=== PATIENT | female | born 1965 | race Caucasian/White ===

== ENCOUNTER 2020-01-12 09:00 | Outpatient (REF) | payer OTHER, SELFPAY | END 2020-01-12 09:01 | disposition home or self-care (01) | LOC: HO.LAB 09:00 | PROVIDERS: Visit Provider Internal Medicine | DX: Z20.828 Contact with and (suspected) exposure to other viral communicable diseases (principal) | CPT/HCPCS: C9803; U0003 ==

== ENCOUNTER 2020-01-16 09:00 | Outpatient (REF) | payer OTHER, SELFPAY ==
--- NOTE | 2020-01-17 09:04 | MHC.AU.P13 ---
Adult Audiological Evaluation Date of Visit: 01/16/20 Roll Machine Operator Used: Declined by Patient Reason for Appointment: Audiologic evaluation due to increasing hearing difficulties. Family notes Katie is asking for speech to be reported more often. Does patient feel they have a hearing loss?: Yes If Yes, Which Ear?: Both Ears When Was Hearing Difficulty First Noticed?: Increasing problems noticed approximately 3 years ago. 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 Medical History: Medical History: Gastritis Medication List: None Otoscopy: Right Ear: Unremarkable Left Ear: Unremarkable Tympanometry: Right Ear: Reduced Middle Ear Compliance (Type As) Left Ear: Reduced Middle Ear Compliance (Type As) Otoacoustic Emissions Frequency Range Used: 1.6-8 kHz Right Ear Results: Absent Emissions Analysis: Reduced/Absent emissions suggest cochlear dysfunction Left Ear Results: Absent Emissions Analysis: Reduced/Absent emissions suggest cochlear dysfunction Hearing Evaluation: Transducer(s) Used: Insert Earphones Bone Conduction Method: Conventional Audiometry Stimuli Used: Pure Tones Right Ear: Description of Hearing: Moderate to severe mixed hearing loss Left Ear: Description of Hearing: Mild to severe sensorineural hearing loss Speech Recognition Threshold (SRT): Method Used: Monitored Live Voice Stimuli Used: Spondee Words Right Ear: 40 dB HL Left Ear: 25 dB HL Word Discrimination: Method: Monitored Live Voice Word Lists Used: Lista Bisil?bica (Indonesian) Right Ear: 100% at 80 dB HL Left Ear: 100% at 65 dB HL Comparison: Compared to the most recent evaluation: N/A Recommendations: Recommendations: Trial with amplification is recommended. Medical clearance from a physician is required before fitting. Referral to Ear, Nose, and Throat is recommended. Recommendations (Other): 1) Medical consultation with an Hris Coordinator due to the asymmetric hearing loss is advised. 2) Following the medical consultation and receipt of medical clearance for hearing aids is obtained, Katie will schedule a Hearing Aid Evaluation appointment at this office. Diagnosis: Primary Diagnosis: H90.3 Bilateral Sensorineural Hearing Loss Services Performed: Services Performed: Comprehensive Audiological Evaluation (CPT 06125) Diagnostic Otoacoustic Emissions (CPT 43988, 26+TC) Tympanometry (CPT 75532) Signature: Provider: Lali Hays, ANGELIQUE-A
== END 2020-01-16 09:01 | disposition home or self-care (01) ==
LOC: HO.SH 09:00
PROVIDERS: PCP Hospitalist; Referring Provider Hospitalist; Visit Provider Hospitalist
DX: H90.3 Sensorineural hearing loss, bilateral (principal)
CPT/HCPCS: 92557; 92567; 92588

== ENCOUNTER 2020-02-19 13:42 | Outpatient (REF) | payer OTHER, SELFPAY ==
--- NOTE | 2020-02-19 15:18 | MHC.AU.HAS ---
Hearing Aid Evaluation Date of Visit: 02/19/20 Commissary Representative Used: Vietnamese interpretation by family member Historical Information: Description of Hearing: Left ear: normal hearing 250-500 Hz, sloping to a mild to moderate SNHL from 4985-2760 Hz. Right ear: Moderate mixed hearing loss 250-1000 Hz, sloping to a moderate to severe sensorineural hearing loss from 8253-5438 Hz. Current personal amplification information, if applicable:: None Summary: Ms. Shin was seen for an audiological evaluation on 01/16/2020, at which time she was diagnosed with a bilateral hearing loss. She was evaluated by ENT Foster Dutton MD and he provided medical clearance for hearing aid use. Ms. Shin has noted difficulties hearing her family and often asks for repetition. Binaural amplification is recommended in order to facilitate improved communication. Hearing Aid Prescription: Based on the individual?s shared listening needs, communication environments, dexterity, desire for connectivity, and personal preferences, the following prescription for amplification has been made: Right ear: Automotive Parts Person: [employer] Model: Audeo P70-13T Battery Size: 13 Color: P4 [place]pont Senior Assistant Manager: Size 1 M Left ear: Left ear prescription to be same as Right Hearing Aid above: Automotive Parts Person: Phonak Model: Audeo P70-13T Battery Size: 13 Color: P4- Pierpont Senior Assistant Manager: Size 1 M Plan of Care: Patient wishes to purchase hearing aids as prescribed Action Taken/Action Needed: Hearing Fitting to be scheduled when materials arrive Primary Diagnosis: H90.3 Bilateral Sensorineural Hearing Loss Signature: Provider: Lali Cage, ANGELIQUE-A
== END 2020-02-19 13:43 | disposition home or self-care (01) ==
LOC: HO.HAP 13:42
PROVIDERS: Visit Provider Hospitalist
DX: Z46.1 Encounter for fitting and adjustment of hearing aid (principal); H90.3 Sensorineural hearing loss, bilateral
CPT/HCPCS: 92591

== ENCOUNTER 2020-03-01 10:06 | Outpatient (REF) | payer OTHER, SELFPAY | END 2020-03-01 10:07 | disposition home or self-care (01) | LOC: HO.LAB 10:06 | PROVIDERS: PCP Hospitalist; Visit Provider Internal Medicine | DX: Z20.822 Contact with and (suspected) exposure to COVID-19 (principal) | CPT/HCPCS: 36415; C9803; U0003 ==

== ENCOUNTER 2020-03-20 13:53 | Outpatient (REF) | payer OTHER, SELFPAY | END 2020-03-20 13:54 | disposition home or self-care (01) | LOC: HO.HAP 13:53 | PROVIDERS: Visit Provider Hospitalist | DX: Z46.1 Encounter for fitting and adjustment of hearing aid (principal); H90.3 Sensorineural hearing loss, bilateral | CPT/HCPCS: V5011; V5020; V5160; V5261; V5266 ==

== ENCOUNTER 2020-03-20 15:14 | Outpatient (REF) | payer OTHER, SELFPAY | END 2020-03-20 15:15 | disposition home or self-care (01) | LOC: HO.LAB 15:14 | PROVIDERS: Visit Provider Internal Medicine | DX: Z20.822 Contact with and (suspected) exposure to COVID-19 (principal) | CPT/HCPCS: 36415; C9803; U0003; U0005 ==

== ENCOUNTER 2021-07-21 11:19 | Outpatient (REF) | payer OTHER, SELFPAY | END 2021-07-21 11:20 | disposition home or self-care (01) | LOC: HO.HAP 11:19 | PROVIDERS: Visit Provider Hospitalist | DX: Z46.1 Encounter for fitting and adjustment of hearing aid (principal); H90.3 Sensorineural hearing loss, bilateral | CPT/HCPCS: 92593; V5266 ==

== ENCOUNTER 2021-10-05 14:04 | Outpatient (REF) | payer OTHER, SELFPAY | END 2021-10-05 14:05 | disposition home or self-care (01) | LOC: HO.HAP 14:04 | PROVIDERS: Visit Provider Hospitalist | DX: Z46.1 Encounter for fitting and adjustment of hearing aid (principal); H90.3 Sensorineural hearing loss, bilateral | CPT/HCPCS: V5266 ==

== ENCOUNTER 2021-11-27 09:52 | Outpatient (REF) | payer OTHER, SELFPAY | END 2021-11-27 09:53 | disposition home or self-care (01) | LOC: HO.HAP 09:52 | PROVIDERS: Visit Provider Hospitalist | DX: Z46.1 Encounter for fitting and adjustment of hearing aid (principal); H90.3 Sensorineural hearing loss, bilateral | CPT/HCPCS: V5266 ==

== ENCOUNTER 2021-12-29 10:02 | Outpatient (REF) | payer MEDICAID, SELFPAY | END 2021-12-29 10:03 | disposition home or self-care (01) | LOC: HO.HAP 10:02 | PROVIDERS: Visit Provider Hospitalist | DX: Z46.1 Encounter for fitting and adjustment of hearing aid (principal); H90.3 Sensorineural hearing loss, bilateral | CPT/HCPCS: V5266 ==

== ENCOUNTER 2022-04-30 14:10 | Outpatient (REF) | payer MEDICAID, SELFPAY | END 2022-04-30 14:11 | disposition home or self-care (01) | LOC: HO.HAP 14:10 | PROVIDERS: Visit Provider Hospitalist | DX: Z46.1 Encounter for fitting and adjustment of hearing aid (principal); H90.3 Sensorineural hearing loss, bilateral | CPT/HCPCS: V5266 ==

== ENCOUNTER 2022-07-30 12:29 | Outpatient (REF) | payer OTHER, SELFPAY | END 2022-07-30 12:30 | disposition home or self-care (01) | LOC: HO.HAP 12:29 | PROVIDERS: Visit Provider Hospitalist | DX: Z46.1 Encounter for fitting and adjustment of hearing aid (principal); H90.3 Sensorineural hearing loss, bilateral | CPT/HCPCS: V5266 ==

== ENCOUNTER 2022-11-02 13:52 | Outpatient (REF) | payer OTHER, SELFPAY | END 2022-11-02 13:53 | disposition home or self-care (01) | LOC: HO.HAP 13:52 | PROVIDERS: Visit Provider Hospitalist | DX: Z46.1 Encounter for fitting and adjustment of hearing aid (principal); H90.3 Sensorineural hearing loss, bilateral | CPT/HCPCS: V5266 ==

== ENCOUNTER 2023-02-11 13:56 | Outpatient (REF) | payer OTHER, SELFPAY | END 2023-02-11 13:57 | disposition home or self-care (01) | LOC: HO.HAP 13:56 | PROVIDERS: Visit Provider Hospitalist | DX: Z46.1 Encounter for fitting and adjustment of hearing aid (principal); H90.3 Sensorineural hearing loss, bilateral | CPT/HCPCS: V5266 ==

== ENCOUNTER 2023-04-19 15:04 | Outpatient (REF) | payer OTHER, SELFPAY | END 2023-04-19 15:05 | disposition home or self-care (01) | LOC: HO.HAP 15:04 | PROVIDERS: Visit Provider Hospitalist | DX: Z46.1 Encounter for fitting and adjustment of hearing aid (principal); H90.3 Sensorineural hearing loss, bilateral | CPT/HCPCS: V5266 ==

== ENCOUNTER 2023-07-01 09:41 | Outpatient (REF) | payer OTHER, SELFPAY | END 2023-07-01 09:42 | disposition home or self-care (01) | LOC: HO.HAP 09:41 | PROVIDERS: Visit Provider Hospitalist | DX: Z46.1 Encounter for fitting and adjustment of hearing aid (principal); H90.3 Sensorineural hearing loss, bilateral | CPT/HCPCS: V5266 ==

== ENCOUNTER 2023-08-30 09:18 | Outpatient (REF) | payer OTHER, SELFPAY | END 2023-08-30 09:19 | disposition home or self-care (01) | LOC: HO.HAP 09:18 | PROVIDERS: Visit Provider Hospitalist | DX: Z46.1 Encounter for fitting and adjustment of hearing aid (principal); H90.3 Sensorineural hearing loss, bilateral | CPT/HCPCS: V5266 ==

== ENCOUNTER 2023-09-28 13:54 | Outpatient (REF) | payer OTHER, SELFPAY ==
--- NOTE | 2023-09-29 12:53 | MHC.AU.HA3 ---
Hearing Instrument Follow-Up- Binaural Date of Visit: 09/28/23 Right Ear: Esa, Model, Color, Serial Number: Sigrid Bankso P70-T SN: [id number] Color: [place] Sales Representative Jewelry Repair Warranty: 05/20/2023 Sales Representative Jewelry Loss and Damage Warranty: 05/20/2023 [facility] Service Plan: 03/20/2021 Battery Size: 13 Agriculture Professor/Slim Tube: 0M Earmold/Dome/CShell/SlimTip:Small power dome (no retention tail) Type of Wax Guard: Cerushield Dispensed By: [facility] Date of Fittin03/20/2020 Left Ear: Esa, Model, Color, Serial Number: Sigrid Pikeeo P70-T SN: [id number] Color: [place] Sales Representative Jewelry Repair Warranty: 05/20/2023 Sales Representative Jewelry Loss and Damage Warranty: 05/20/2023 [facility] Service Plan: 03/20/2021 Battery Size: 13 Agriculture Professor/Slim Tube: 1M Earmold/Dome/CShell/SlimTip: Small vented dome (no retention tail) Type of Wax Guard: Cerushield Dispensed By: [facility] Date of Fittin03/20/2020 Follow-Up Summary: Right hearing aid not working. Still even after cleaning, information specialist replacement, etc. Cleaned left hearing aid, replaced dome and wax guard. Vacuumed microphones. Ran through dehumidifier. Listening check demonstrated left hearing aid amplifying clearly. Programmed loaner for right ear. Sent right hearing aid to [employer]. Will need appointment for pickling tank operator to re-pair with left hearing aid when it returns. Recommendations: Patient will be contacted when materials have arrived. Diagnosis Code(s): Primary Diagnosis: H90.A31 Mixed HL, Unilateral Right Ear, W/Restricted Contralateral Secondary Diagnosis: H90.A22 SNHL, Unilateral, Left Ear, W/Restricted Contralateral Hearing Signature: Provider: Siobhan Randle, [facility]
== END 2023-09-28 13:55 | disposition home or self-care (01) ==
LOC: HO.HAP 13:54
PROVIDERS: PCP Internal Medicine; Visit Provider Internal Medicine
DX: Z46.1 Encounter for fitting and adjustment of hearing aid (principal); H90.A31 Mixed conductive and sensorineural hearing loss, unilateral, right ear with restricted hearing on the contralateral side; H90.A22 Sensorineural hearing loss, unilateral, left ear, with restricted hearing on the contralateral side
CPT/HCPCS: 92593; 99499

== ENCOUNTER 2023-10-20 13:28 | Outpatient (REF) | payer OTHER, SELFPAY | END 2023-10-20 13:29 | disposition home or self-care (01) | LOC: HO.HAP 13:28 | PROVIDERS: Visit Provider Internal Medicine | DX: Z13.89 Encounter for screening for other disorder (principal) | CPT/HCPCS: V5014 ==

== ENCOUNTER 2023-11-09 09:32 | Outpatient (REF) | payer OTHER, SELFPAY | END 2023-11-09 09:33 | disposition home or self-care (01) | LOC: HO.HAP 09:32 | PROVIDERS: Visit Provider Internal Medicine | DX: Z46.1 Encounter for fitting and adjustment of hearing aid (principal); H90.A31 Mixed conductive and sensorineural hearing loss, unilateral, right ear with restricted hearing on the contralateral side; H90.A22 Sensorineural hearing loss, unilateral, left ear, with restricted hearing on the contralateral side | CPT/HCPCS: V5266 ==

== ENCOUNTER 2024-01-25 09:05 | Outpatient (REF) | payer OTHER, SELFPAY | END 2024-01-25 09:06 | disposition home or self-care (01) | LOC: HO.HAP 09:05 | PROVIDERS: Visit Provider Internal Medicine | DX: Z46.1 Encounter for fitting and adjustment of hearing aid (principal); H90.A31 Mixed conductive and sensorineural hearing loss, unilateral, right ear with restricted hearing on the contralateral side; H90.A22 Sensorineural hearing loss, unilateral, left ear, with restricted hearing on the contralateral side | CPT/HCPCS: V5266 ==

== ENCOUNTER 2024-03-28 15:23 | Outpatient (REF) | payer OTHER, SELFPAY ==
--- OUTSIDE RECORDS SUMMARY | 2024-03-28 16:17 | XMS_ITS | Clinical Summary ---
[facility] Address [address] [place] [phone] Care Team Providers Care Varying Exceptionalities Teacher Name Role Phone Jeremy Montiel MD Primary Care Provider Surgical History Surgery Date Site/Laterality Comments OTHER SURGICAL HISTORY PROCEDURE: ---- OTHER ----; COMMENT: Family History Medical History Relation Name Comments Arthritis Brother Other: gastritis Mother ETOH abuse, Hypertension Sister Relation Name Status Comments Brother Mother Sister Social History Tobacco Use Types Packs/Day Years Used Date Smoking Tobacco: Never Smokeless Tobacco: Never Alcohol Use Standard Drinks/Week Comments No 0 (1 standard drink = 0.6 oz pur e alcohol) Comments Unknown Sex and Gender Information Value Date Recorded Sex Assigned at Not on file Legal Sex Female 1:46 AM EST Gender Identity Not on file Sexual Orientation Not on file Obstetrics History Plan of Treatment Health Maintenance Due Date Last Done Comments Hepatitis B Vaccines (1 of 3 - 19+ 3-dose series) 1986 Cervical Cancer Screening: P ap Smear 1988 Zoster Vaccines (1 of 2) 2017 Breast Cancer Screening 04/28/2018 04/28/2016 COVID-19 Vaccine ( - 2023-2 5 season) 2023 Influenza Vaccine (#1) 2023 12/06/2019 Colorectal Cancer Screening: Colonoscopy 11/22/2023 Depression Screening 11/22/2023 HIV Screening 11/22/2023 Hepatitis C Screening 11/22/2023 Social Influencers of Health Screening 11/22/2023 DTaP,Tdap,and Td Vaccines (2 - Td or Tdap) 01/20/2026 01/21/2016 HIB Vaccines Aged Out No longer eligi ble based on patient's age to complete this topic HPV Vaccines Aged Out No longer eligi ble based on patient's age to complete this topic Hepatitis A Vaccines Aged Out No long er eligible based on patient's age to complete this topic IPV Vaccines Aged Out No longer eligi ble based on patient's age to complete this topic MMR Vaccines Aged Out No longer eligi ble based on patient's age to complete this topic Meningococcal ACWY Vaccine Aged Out N o longer eligible based on patient's age to complete this topic Pneumococcal Vaccine: Pediat rics (0 to 5 Years) and At-Risk Patients (6 to 64 Years) Aged Out No longer eligi ble based on patient's age to complete this topic RSV Immunization Patients Un pilar 20 months Aged Out No longer eligible b ased on patient's age to complete this topic Varicella Vaccines Aged Out No longer eligible based on patient's age to complete this topic Procedures Procedure Name Priority Date/Time Associated Diagnosis Comments SCR MAMMO BI INCL CAD Routine 04/28/2016 10:52 AM EDT Encounter for screening mammogram for malignant neoplasm of breast from Last 3 Months or Most Recently Relevant to Health Maintenance Results * SCR MAMMO BI INCL CAD (04/28/2016 10:52 AM EDT) Anatomical Region Laterality Modality Radiographic Ana ging 01/21/2016 3:29 PM EST Narrative 04/28/2016 1:47 PM EDT This is a summary report. The complete report is available in the patient's medical record. If you cannot access the medical record, please contact the sending organization for a detailed fax or copy. Full field digital screening mammography, reviewed with CAD and compared to previous. The breast tissue is heterogeneously dense, limiting sensitivity. No suspicious mass, architectural distortion or suspicious calcifications are identified. IMPRESSION: : Dense breast tissue, limiting the sensitivity of mammography. No mammographic evidence of malignancy. BIRADS 1-Negative; N. 5 year breast cancer risk assessment 0.5% Lifetime breast cancer risk assessment 5.3% Breast cancer risk category Breast cancer risk not assessed Procedure Note Dee Perkins MD - 03/21/2023 This is a summary report. The complete report is available in thepatient's medical record. If you cannot access the medical record, pleasecontact the sending organization for a detailed fax or copy. Full field digital screening mammography, reviewed with CAD and comparedto previous. The breast tissue is heterogeneously dense, limitingsensitivity. No suspicious mass, architectural distortion or suspiciouscalcifications are identified. IMPRESSION: : Dense breast tissue, limiting the sensitivity of mammography. Nomammographic evidence of malignancy. BIRADS 1-Negative; N. 5 year breast cancer risk assessment 0.5% Lifetime breast cancer risk assessment 5.3% Breast cancer risk category Breast cancer risk not assessed Jeremy Montiel MD IMG XR PROCEDURES Final Result from Last 3 Months or Most Recently Relevant to Health Maintenance Care Teams Varying Exceptionalities Teacher Relationship Specialty Start Date End Date Jeremy Montiel MD PCP - General Internal Medicine 04/25/15
== END 2024-03-28 15:24 | disposition home or self-care (01) ==
LOC: HO.HAP 15:23
PROVIDERS: Visit Provider Internal Medicine
DX: Z46.1 Encounter for fitting and adjustment of hearing aid (principal)
CPT/HCPCS: V5266

== ENCOUNTER 2024-04-23 13:12 | Outpatient (REF) | payer OTHER, SELFPAY ==
--- OUTSIDE RECORDS SUMMARY | 2024-04-23 14:53 | XMS_ITS | Clinical Summary ---
Author Organization [facility] ity Address [address] [place] [phone] Care Team Providers Care Consulting Services Project Manager Name Role Phone Jeremy Montiel MD Primary [...] Cervical Cancer Screening: P ap Smear 1988 Pneumococcal Vaccine: 50+ Ye ars (1 of 1 - PCV) 2017 Zoster Vaccines (1 of 2) 2017 Breast [...] patient's age to complete this topic Meningococcal B Vacine Aged Out No lo nger eligible based on patient's age to complete [...] Recently Relevant to Health Maintenance Care Teams Consulting Services Project Manager Relationship Specialty Start Date End Date Jeremy Montiel MD PCP - General Internal Medicine 04/25/15
--- NOTE | 2024-04-23 15:57 | MHC.AU.HA3 ---
Hearing Instrument Follow-Up- Binaural Date of Visit: 04/23/24 Right Ear: Make, Model, Color, Serial Number: Sigrid Audeo P70-T SN: [id number] Color: [place] Rocket Engine Component Mechanic Repair Warranty: 04/12/2024 Rocket Engine Component Mechanic Loss and Damage Warranty: 05/20/2023 [facility] Service Plan: 03/20/2021 Battery Size: 13 Shuffle Board Operator/Slim Tube: 0M Earmold/Dome/CShell/SlimTip:Small power dome (no retention tail) Type of Wax Guard: Cerushield Dispensed By: [facility] Date of Fittin03/20/2020 Left Ear: Make, Model, Color, Serial Number: Araceliak Audeo P70-T SN: [id number] Color: [place] Rocket Engine Component Mechanic Repair Warranty: 05/20/2023 Rocket Engine Component Mechanic Loss and Damage Warranty: 05/20/2023 [facility] Service Plan: 03/20/2021 Battery Size: 13 Shuffle Board Operator/Slim Tube: 0M Earmold/Dome/CShell/SlimTip: Small vented dome (no retention tail) Type of Wax Guard: Cerushield Dispensed By: [facility] Date of Fittin03/20/2020 Follow-Up Summary: Left aid dropped off with broken outreach counselor wire. Replaced. Listening check positive. Out of warranty. Recommendations: Recommendations: Hearing instrument follow-up or maintenance as needed. Diagnosis Code(s): Primary Diagnosis: H90.3 Signature: Provider: Siobhan Souza, [facility]
== END 2024-04-23 13:13 | disposition home or self-care (01) ==
LOC: HO.HAP 13:12
PROVIDERS: Visit Provider Internal Medicine
DX: Z13.89 Encounter for screening for other disorder (principal)

== ENCOUNTER 2024-04-24 15:34 | Outpatient (REF) | payer OTHER, SELFPAY ==
--- OUTSIDE RECORDS SUMMARY | 2024-04-24 18:52 | XMS_ITS | Clinical Summary ---
Author Organization [facility] Address [address] [place] [phone] Care Team Providers Care Processor Grain Name Role Phone Jeremy Montiel MD Primary [...] Recently Relevant to Health Maintenance Care Teams Processor Grain Relationship Specialty Start Date End Date Jeremy Montiel MD PCP - General Internal Medicine 04/25/15
== END 2024-04-24 15:35 | disposition home or self-care (01) ==
LOC: HO.HAP 15:34
PROVIDERS: Visit Provider Internal Medicine
DX: Z46.1 Encounter for fitting and adjustment of hearing aid (principal); H90.3 Sensorineural hearing loss, bilateral
CPT/HCPCS: V5299

== ENCOUNTER 2024-05-21 13:02 | Outpatient (REF) | payer OTHER, SELFPAY ==
--- OUTSIDE RECORDS SUMMARY | 2024-05-21 15:29 | XMS_ITS | Clinical Summary ---
Author Organization [facility] Address [address] [place] [phone] Care Team Providers Care Telephone Surveyor Name Role Phone Jeremy Montiel MD Primary [...] age to complete this topic Meningococcal B Vaccine Aged Out No l onger eligible based on patient's age to complete [...] Recently Relevant to Health Maintenance Care Teams Telephone Surveyor Relationship Specialty Start Date End Date Jeremy Montiel MD PCP - General Internal Medicine 04/25/15
--- NOTE | 2024-05-22 15:02 | MHC.AU.HA3 ---
Hearing Instrument Follow-Up- Binaural Date of Visit: 05/22/24 Right Ear: Esa, Model, Color, Serial Number: Sigrid Bankso P70-T SN: [id number] Color: Gunlock Manager Core Repair Warranty: 04/12/2024 Manager Core Loss and Damage Warranty: 05/20/2023 [facility] Service Plan: 03/20/2021 Battery Size: 13 [place] Firefighter/Slim Tube: 0M Earmold/Dome/CShell/SlimTip:Small power dome (no retention tail) Type of Wax Guard: Cerushield Dispensed By: [facility] Date of Fittin03/20/2020 Left Ear: Esa, Model, Color, Serial Number: Sigrid Pikeeo P70-T SN: [id number] Color: Gunlock Manager Core Repair Warranty: 05/20/2023 Manager Core Loss and Damage Warranty: 05/20/2023 [facility] Service Plan: 03/20/2021 Battery Size: 13 [place] Firefighter/Slim Tube: 0M Earmold/Dome/CShell/SlimTip: Small vented dome (no retention tail) Type of Wax Guard: Cerushield Dispensed By: [facility] Date of Fittin03/20/2020 Follow-Up Summary: Right KHOURY dropped off reporting had a noise then it shut down, battery was changed but it's still . Upon inspection, KHOURY was working. Cleaned. Replaced dome and wax guard. Some build up noted in microphones - vacuumed. Ran through dehumidifier. Listening check demonstrated KHOURY amplifying clearly. Tried to called patient for more information, Taiwanese speaking - to front office to call/pepper picker. Recommendations: Hearing instrument follow-up or maintenance as needed. Please contact our clinic with any questions or concerns. Diagnosis Code(s): Primary Diagnosis: H90.A31 Mixed HL, Unilateral Right Ear, W/Restricted Contralateral Secondary Diagnosis: H90.A22 SNHL, Unilateral, Left Ear, W/Restricted Contralateral Hearing Signature: Provider: Siobhan Randle, [facility]
== END 2024-05-21 13:03 | disposition home or self-care (01) ==
LOC: HO.SH 13:02
PROVIDERS: Visit Provider Internal Medicine
DX: Z13.89 Encounter for screening for other disorder (principal)

== ENCOUNTER 2024-05-22 15:54 | Outpatient (REF) | payer OTHER, SELFPAY ==
--- OUTSIDE RECORDS SUMMARY | 2024-05-22 18:48 | XMS_ITS | Clinical Summary ---
Author Organization [facility] Address [address] [place] [phone] Care Team Providers Care Home Attendant Name Role Phone Jeremy Montiel MD Primary [...] Recently Relevant to Health Maintenance Care Teams Home Attendant Relationship Specialty Start Date End Date Jeremy Montiel MD PCP - General Internal Medicine 04/25/15
== END 2024-05-22 15:55 | disposition home or self-care (01) ==
LOC: HO.HAP 15:54
PROVIDERS: Visit Provider Internal Medicine
DX: Z46.1 Encounter for fitting and adjustment of hearing aid (principal); H90.3 Sensorineural hearing loss, bilateral
CPT/HCPCS: 92592; 99499

== ENCOUNTER 2024-06-05 10:44 | Outpatient (REF) | payer OTHER, SELFPAY ==
--- OUTSIDE RECORDS SUMMARY | 2024-06-05 12:47 | XMS_ITS | Clinical Summary ---
Author Organization [facility] ity Address [address] [place] [phone] Care Team Providers Care Cook Chili Name Role Phone Jeremy Montiel MD Primary [...] Breast Cancer Screening 04/28/2018 04/28/2016 COVID-19 Vaccine (2023-2 5 season) 2023 Colorectal Cancer Screening: Colonoscopy 11/22/2023 Depression Screening 11/22/2023 HIV Screening 11/22/2023 Hepatitis C Screening 11/22/2023 Social Influencers of Health Screening 11/22/2023 Influenza Vaccine (Season Ended) 2024 12/06/19 20 DTaP,Tdap,and Td Vaccines (2 - Td or [...] Recently Relevant to Health Maintenance Care Teams Cook Chili Relationship Specialty Start Date End Date Jeremy Montiel MD PCP - General Internal Medicine 04/25/15
== END 2024-06-05 10:45 | disposition home or self-care (01) ==
LOC: HO.HAP 10:44
PROVIDERS: Visit Provider Internal Medicine
DX: Z46.1 Encounter for fitting and adjustment of hearing aid (principal); H90.A21 Sensorineural hearing loss, unilateral, right ear, with restricted hearing on the contralateral side; H90.A22 Sensorineural hearing loss, unilateral, left ear, with restricted hearing on the contralateral side
CPT/HCPCS: V5266

== ENCOUNTER 2024-08-08 12:48 | Outpatient (REF) | payer OTHER, SELFPAY ==
--- OUTSIDE RECORDS SUMMARY | 2024-08-08 14:51 | XMS_ITS | Clinical Summary ---
Author Organization [facility] ity Address [address] [place] [phone] Care Team Providers Care Business Analysis Consultant Name Role Phone Jeremy Montiel MD Primary [...] Recently Relevant to Health Maintenance Care Teams Business Analysis Consultant Relationship Specialty Start Date End Date Jeremy Montiel MD PCP - General Internal Medicine 04/25/15
== END 2024-08-08 12:49 | disposition home or self-care (01) ==
LOC: HO.HAP 12:48
PROVIDERS: Visit Provider Internal Medicine
DX: Z46.1 Encounter for fitting and adjustment of hearing aid (principal); H90.A31 Mixed conductive and sensorineural hearing loss, unilateral, right ear with restricted hearing on the contralateral side; H90.A22 Sensorineural hearing loss, unilateral, left ear, with restricted hearing on the contralateral side
CPT/HCPCS: V5266

== ENCOUNTER 2024-11-06 14:19 | Outpatient (REF) | payer OTHER, SELFPAY ==
--- OUTSIDE RECORDS SUMMARY | 2024-11-06 17:34 | XMS_ITS | Clinical Summary ---
Author Organization [facility] Address [address] [place] [phone] Care Team Providers Care Registered Client Associate Name Role Phone Jeremy Montiel MD Primary [...] 2) 2017 Breast Cancer Screening 04/28/2018 04/28/2016 Colorectal Cancer Screening: Colonoscopy 11/22/2023 HIV Screening 11/22/2023 Hepatitis C Screening 11/22/2023 Social Influencers of Health Screening 11/22/2023 Depression Screening 02/15/2024 COVID-19 Vaccine (1 - 2023-2 5 season) 2024 Influenza Vaccine (#1) 2024 12/06/2019 DTaP,Tdap,and Td Vaccines (2 - Td or [...] Recently Relevant to Health Maintenance Care Teams Registered Client Associate Relationship Specialty Start Date End Date Jeremy Montiel MD PCP - General Internal Medicine 04/25/15
== END 2024-11-06 14:20 | disposition home or self-care (01) ==
LOC: HO.HAP 14:19
PROVIDERS: Visit Provider Internal Medicine
DX: Z46.1 Encounter for fitting and adjustment of hearing aid (principal); H90.A31 Mixed conductive and sensorineural hearing loss, unilateral, right ear with restricted hearing on the contralateral side; H90.A22 Sensorineural hearing loss, unilateral, left ear, with restricted hearing on the contralateral side
CPT/HCPCS: V5266

== ENCOUNTER 2025-01-09 13:04 | Outpatient (REF) | payer OTHER, SELFPAY | END 2025-01-09 13:05 | disposition home or self-care (01) | LOC: HO.HAP 13:04 | PROVIDERS: Visit Provider Internal Medicine | DX: H90.A31 Mixed conductive and sensorineural hearing loss, unilateral, right ear with restricted hearing on the contralateral side (principal); H90.A22 Sensorineural hearing loss, unilateral, left ear, with restricted hearing on the contralateral side | CPT/HCPCS: V5266 ==